=== PATIENT | male | born 1990 | race Caucasian/White ===

== ENCOUNTER → 2016-09-04 | Outpatient (CLI) | payer MEDICAID ==
--- NOTE | 2016-09-04 15:17 | MR ---
MRI Lower Extremity, Left Foot History: Injury in May due from fall from height. Continued pain at metatarsal head to the lat eral malleolus. Technique: MRI was performed of the left foot using a 3.0 [employer] MRI system. Sagittal, coronal, and axial imaging was obtained with standard imaging sequences. Comparison: X-ray May 2016. Findings: Bone marrow edema is seen in the inferolateral malleolus. A partial nondisplaced fracture line is seen anteriorly and laterally. There also appears to be a nearly completely healed fracture of the distal metadiaphysis of the fibula, with minimal bone marrow edema. No evidence for an osteo chondral defect of the talar dome. No significant joint effusion. There is mild edema superficial to the anterior talofibular ligament, without attenuation. There is edema and irregularity of the anterior tibiofibular ligament. There is abnormal signal intensity and attenuation for a 3-cm segment of the peroneal longus tendon c audal to the peroneal tubercle, with mild peritendinous edema. The peroneal brevis tendon is unremar kable. The posterior medial tendons are unremarkable. The Achilles tendon is unremarkable. The sidney ntar fascia is unremarkable. The cuneiform metatarsal articulation is unremarkable. The Lisfranc ligament is intact. No evidence for a bone contusion or stress fracture of the metatarsals. Minimal bone marrow edema is seen in th e medial sesamoid. No evidence for a joint effusion. Impressions 1. Bone contusion and partial nondisplaced fracture line at the anterolateral aspect of the lateral malleolus. Nearly completely healed oblique fracture of the distal metadiaphysis of the fibula. 2. Partial tear anterior tibiofibular ligament and mild strain anterior talofibular ligament. 3. Moderate tendinopathy and partial tear peroneal longus tendon lateral to the peroneal tubercle. 4. Minimal contusion or sesamoiditis of the medial sesamoid.
== END ==
LOC: FIMAGING 13:47
PROVIDERS: ATTEND Podiatrist Foot & Ankle Surgery
DX: S82.62XA Displaced fracture of lateral malleolus of left fibula, initial encounter for closed fracture (principal); S82.432D Displaced oblique fracture of shaft of left fibula, subsequent encounter for closed fracture with routine healing; S93.432A Sprain of tibiofibular ligament of left ankle, initial encounter; S86.812A Strain of other muscle(s) and tendon(s) at lower leg level, left leg, initial encounter; S96.012A Strain of muscle and tendon of long flexor muscle of toe at ankle and foot level, left foot, initial encounter

== ENCOUNTER 2018-05-02 15:32 | Emergency (ER) | payer MEDICAID ==
--- NOTE | 2018-05-02 16:35 | EDPHY ---
H & P Time Seen by Provider: 05/02/18 16:25 HPI/ROS: CHIEF COMPLAINT: Cough for 10 days HISTORY OF PRESENT ILLNESS: A 28-year-old man presents with cough for 10 days. He had a similar episode last year which lasted for 6 weeks. Presents today with cough and a little bit of shortness of breath. Some yellow phlegm but no hemoptysis and no leg swelling. No fever or chills. Chest pain only with cough. Symptoms moderate. No recent sick contacts or foreign travel. Intermittent, not paroxysmal. REVIEW OF SYSTEMS: Eye: no change in vision ENT: no sore throat Cardiac: HPI Pulmonary: HPI Abdomen: no vomiting, diarrhea, abdominal pain Musculoskeletal: no back pain Skin: no rash Neuro: no headache Constitutional: no fever : no urinary symptoms A comprehensive 10 point review of systems is otherwise negative aside from elements mentioned in the history of present illness. PAST MEDICAL HISTORY: Pneumothorax with left lung surgery in [place] 10 years ago No recent travel or immobilization Social history: Tobacco smoker General Appearance: Alert and conversant, cooperative. Eyes: No scleral icterus. ENT, Mouth: Normal mucous membranes. Respiratory: Patient has bilateral expiratory wheezing but lung sounds are symmetric, no rhonchi or rales. Cardiovascular: Regular rate and rhythm. Gastrointestinal: Abdomen is soft and non tender. Neurological: Alert, face symmetric, normal motor and sensory in extremities. Skin: Warm and dry, no rashes. Musculoskeletal: No calf tenderness. Psychiatric: Not agitated. Emergency Department course/MDM: Plan for chest x-ray, antibiotics if pneumonia, albuterol and steroids if clear. Chest x-ray reviewed is normal, he does have wheezing, plan for continued use of albuterol inhaler and oral steroids discussed and consented. Does not have indication for antibiotics at this time. Smoking Status: Light smoker Constitutional: Initial Vital Signs Temperature (C) 36.9 C 05/02/18 15:41 Heart Rate 87 05/02/18 15:41 Respiratory Rate 16 05/02/18 15:41 Blood Pressure 141/71 H 05/02/18 15:41 O2 Sat (%) 95 05/02/18 15:41 O2 Delivery Mode Room Air Allergies/Adverse Reactions: No Known Allergies Allergy (Verified 05/02/18 15:44) Home Medications: Medication Instructions Recorded Miscellaneous Medical Supply [NO 1 ea MISC AD 11/08/12 HOME MEDS] predniSONE 10 mg PO AD #15 tab 05/02/18 Medical Decision Making - Diagnostics Imaging Results: Imaging Impressions Chest X-Ray 05/02/18 16:34 Impression: Clear lungs. No acute process. Imaging: I viewed and interpreted images myself Differential Diagnosis: Differential considered including but not limited to bronchitis, pertussis, bronchospasm, pneumonia, pneumothorax, URI - Data Points Medications Given: Discontinued Medications Prednisone (Prednisone) 60 mg PO EDNOW ONE Stop: 05/02/18 17:25 Last Admin: 05/02/18 17:35 Dose: 60 mg Departure - Departure Disposition: Home, Routine, Self-Care Clinical Impression: Bronchospasm with bronchitis, acute Condition: Good Instructions: Bronchospasm (ED) Additional Instructions: Use albuterol inhaler 2 puffs every 4-6 hours for the next week. Oral steroids as prescribed. Chest x-ray read by radiologist as negative, no pneumonia. Referrals: Pavan Willis MD [Medical Doctor] - As per Instructions Prescriptions: predniSONE 10 mg PO AD #15 tab
[2018-05-02] MEDS ORDERED: predniSONE 20 MG TAB PO ONE (17:24)
[2018-05-02 17:37] VITALS: BP 121/74
== END 2018-05-02 17:44 | disposition home or self-care (01) ==
DX: J20.9 Acute bronchitis, unspecified (principal); F17.200 Nicotine dependence, unspecified, uncomplicated
CPT/HCPCS: J7512